=== PATIENT | female | born 1975 | race Caucasian/White ===

== ENCOUNTER → 2025-04-12 11:41 | Outpatient (CLI) | payer OTHER, SELFPAY ==
[2025-04-12 14:43] LABS: Influenza A - CEPHEID Flu A NEGATIVE (NEGATIVE); Influenza B - CEPHEID Flu B NEGATIVE (NEGATIVE)
[2025-04-12 14:44] LABS: COVID-19 CEPHEID 4-PLEX PCR Negative (Negative)
== END ==
PROVIDERS: PCP Family Medicine; Visit Provider Family Medicine
DX: J02.9 Acute pharyngitis, unspecified (principal)
CPT/HCPCS: 87637

== ENCOUNTER → 2025-04-12 11:55 | Outpatient (CLI) | payer OTHER, SELFPAY ==
[2025-04-12 12:35] LABS: Hematocrit 40.0 % (36-46); Hemoglobin 13.6 g/dL (12.0-16.0); Mean Corpuscular HGB Conc 34.0 % (30-36); Mean Corpuscular Hemoglobin 30.9 PG (26-34); Mean Corpuscular Volume 90.9 fL (80-100); Platelet Count 316 X10^3/uL (150-400)
[2025-04-12 12:54] LABS: HEMOLYSIS < 15 (0-50); Iron 167 ug/dL (37-170)
[2025-04-12 13:06] LABS: Alanine Aminotransferase 13 IU/L (<35); Albumin 4.8 g/dL (3.5-5.0); Albumin Globulin Ratio 1.4 (1.0-2.8); Alkaline Phosphatase 68 U/L (38-126); Blood Urea Nitrogen 17 mg/dL (7-17); Calcium 10.0 mg/dL (8.4-10.2); Carbon Dioxide 25 mmol/L (22-32); Chloride 106 mmol/L (98-107); Cholesterol 177 mg/dL (140-199); Estimated Glomerular Filt Rate > 60 mL/min (>60); Globulin 3.5 g/dL (1.7-4.1); Glucose 94 mg/dL (70-99); HDL Cholesterol 95 mg/dL (40-60); HEMOLYSIS < 15 (0-50); Potassium 4.6 mmol/L (3.4-5.1); Sodium 139 mmol/L (137-145); Total Protein 8.3 g/dL (6.3-8.2); Triglycerides 93 mg/dL (35-150)
[2025-04-12 13:08] LABS: Percent Iron Saturation 42 % (15-50); Total Iron Binding Capacity 393 ug/dL (265-497); Transferrin 338 mg/dL (206-381)
[2025-04-12 13:40] LABS: Ferritin 8 ng/mL (6-137)
[2025-04-12 15:38] LABS: HIV 1 & 2 Ab/Ag 4th Gen Combo NEGATIVE (NEGATIVE); Hep C Virus Ab w/Reflex Quant NEGATIVE s/c (NEGATIVE)
== END ==
PROVIDERS: PCP Family Medicine; Referring Provider Family Medicine; Visit Provider Family Medicine
DX: I10 Essential (primary) hypertension (principal); Z13.9 Encounter for screening, unspecified; R53.83 Other fatigue; J02.9 Acute pharyngitis, unspecified
CPT/HCPCS: 36415; 80053; 80061; 82728; 83540; 83550; 85027; 86803; 87389; 87637

== ENCOUNTER → 2025-05-10 06:46 | Outpatient (CLI) | payer OTHER, SELFPAY ==
--- NOTE | 2025-05-10 06:47 | DI.ECHO.S_ITS ---
[place] : : [address] : : [place] : : [id number] : : Phone: [phone] Echocardiogram Report + + :Name: JOSE PRATT Study Date: 05/10/2025 Height: 63 in : :[facility] ReadingLocation: Weight: 140 lb : : Gender: Female BSA: 1.7 m2 : :: 1975 Age: 49 yrs BP: 132/80 mmHg: :Reason For Study: Aortic regurgitation : :Ordering Physician: KAREEM CARLISLE : :P Performed By: Arturo Knight : :Referring: KAREEM CARLISLE P : + + Interpretation Summary The left ventricle is normal in size and wall thickness. Left ventricular systolic function is normal. The ejection fraction is estimated to be 60-65%. There are no focal wall motion abnormalities. Normal diastolic function. The right ventricle is normal in size and function. The right ventricular systolic pressure is estimated to be at least 21 mmHg based on an estimated right atrial pressure of 3 mm Hg. The left atrial size is normal. There is no significant valvular heart disease. The aortic root is normal size. Procedure: A two-dimensional transthoracic echocardiogram with color flow and Doppler was performed. The study quality was technically adequate. The patient had an echocardiogram, but there is no comparison study available. The patient was in normal sinus rhythm during the exam. Left Ventricle: The left ventricle is normal in size and wall thickness. Left ventricular systolic function is normal. The ejection fraction is estimated to be 60-65%. There are no focal wall motion abnormalities. Normal diastolic function. Right Ventricle: The right ventricle is normal in size and function. Atria: The left atrial size is normal. Right atrial size is normal. There is no Doppler evidence for an interatrial shunt. Mitral Valve: The mitral valve leaflets appear normal. There is no evidence of stenosis, fluttering, or prolapse. There is trace mitral regurgitation. Aortic Valve: The aortic valve is trileaflet. The aortic valve opens well. There is no aortic valve stenosis. There is trace aortic regurgitation. Tricuspid Valve: The tricuspid valve leaflets are thin and pliable. There is trace tricuspid regurgitation. The right ventricular systolic pressure is estimated to be at least 21 mmHg based on an estimated right atrial pressure of 3 mm Hg. Pulmonic Valve: The pulmonic valve is not well seen, but is grossly normal. There is a trace or physiologic amount of pulmonic regurgitation. There is no significant valvular heart disease. Great Vessels: The aortic root is normal size. The ascending aorta is normal in size. The aortic arch is normal in size. The pulmonary artery is normal size. The IVC is of normal diameter and collapses greater than 50% with a sniff. This suggests a low right atrial pressure of 3 mm Hg. Pericardium/ Pleura There is no pericardial effusion. MMode/2D Measurements & Calculations LVIDd: 4.2 cm LVOT diam: 1.9 cm LVIDs: 2.6 cm Ao root diam: 2.7 cm FS: 37.9 % asc Aorta Diam: 2.8 cm IVSd: 0.75 cm Ao Arch Diam (Prox Trans): 2.6 cm LVPWd: 0.73 cm LV corrales. diameter/BSA (cm/m^2): 2.5 LV sys. diameter/BSA (cm/m^2): 1.6 LA A2 area: 15.8 cm2 RA long axis: 4.6 cm LA A4 area: 15.5 cm2 RA area: 13.2 cm2 LA length (vol): 5.0 cm RA vol: 32.6 ml LA vol: 41.3 ml RA : 19.6 ml/m2 LA vol index: 24.9 ml/m2 IVC diam: 1.9 cm RVD2 (mid): 2.5 cm TAPSE: 2.6 cm Doppler Measurements & Calculations Ao V2 max: 117.7 cm/sec LVOT Max Syed: 94.8 cm/sec Ao V2 mean: 89.0 cm/sec LV V1 max P.6 mmHg Ao max P.5 mmHg LV V1 VTI: 19.1 cm Ao mean P.4 mmHg FRANCHESKA(I,D): 2.1 cm2 Ao V2 VTI: 25.1 cm FRANCHESKA(V,D): 2.2 cm2 sev ratio: 0.76 FRANCHESKA indexed to BSA (cm^2/m^2): 1.3 MV E max syed: 78.9 cm/sec TR max syed: 213.4 cm/sec MV A max syed: 37.5 cm/sec TR max P.2 mmHg MV E/A: 2.1 PA V2 max: 67.6 cm/sec Med Peak E' Syed: 9.6 cm/sec PA V2 mean: 47.3 cm/sec E/E' med: 8.2 PA mean P.0 mmHg Lat Peak E' Syed: 12.3 cm/sec PA pr(Accel): 7.1 mmHg E/E' lat: 6.4 E/e' average: 7.3 MV dec time: 0.22 sec SV(LVOT): 53.1 ml Qp/Qs (V,Ao): 1.0/7.0 Qp/Qs (V,LVOT): 1.0/2.6 Reading Physician:08:42 AM
== END ==
LOC: ECHO 06:46
PROVIDERS: PCP Family Medicine; Referring Provider Family Medicine; Visit Provider Family Medicine
DX: I35.1 Nonrheumatic aortic (valve) insufficiency (principal)
CPT/HCPCS: 93306